=== PATIENT | female | born 1995 | race Caucasian/White ===

== ENCOUNTER 2017-06-14 09:19 | Emergency (ER) | payer OTHER ==
[~2017-06-14] VITALS: Ht 152.4 cm; Wt 86.6 kg
[2017-06-14 09:50] VITALS: Ht 152.4 cm; Wt 86.6 kg
[2017-06-14 11:19] VITALS: BP 118/79
== END 2017-06-14 11:19 | disposition home or self-care (01) ==
LOC: ED 09:19
DX: O26.892 Other specified pregnancy related conditions, second trimester (principal); Z3A.24 24 weeks gestation of pregnancy; R10.9 Unspecified abdominal pain